=== PATIENT | male | born 1975 | race Caucasian/White ===

== ENCOUNTER 2019-03-26 18:01 | Emergency (ER) | payer BC ==
[~2019-03-26] VITALS: Ht 180.3 cm; Wt 149.7 kg
--- NOTE | 2019-03-26 18:01 | NUR ---
Patient triaged and placed in waiting room. VSS and patient appears in no acute distress at this time. Accompanied by FAMILY, awaiting available bed, and MD notified of need for MSE.
[2019-03-26 18:05] VITALS: BP_SYST 126
--- NOTE | 2019-03-26 20:17 | NUR ---
2017 - Patient to ER bed h1 to gown for evaluation. Side rails up. Report given to CALIXTO Barnes.
--- NOTE | 2019-03-26 20:20 | NUR ---
Pt brought by self ,A&Ox4, pt presents to ER with L earache for one week , skin pink and warm,cap refill <3, VSS, respirations even and unlabored, afebrile.
--- NOTE | 2019-03-26 20:25 | NUR ---
Dr Mackey at bedside examining patient
[2019-03-26] MEDS ORDERED: IBUPROFEN 800 MG TABLET PO ONE (20:30)
[2019-03-26] MEDS ORDERED: AMOXICILLIN 500 MG CAPSULE PO ONE (20:30)
[2019-03-26] MEDS ORDERED: NEOMYCIN/POLYMYX B/HYDROCORTISONE 10 ML OTIC SOLUTION OT ONE (20:30)
[2019-03-26 20:43] VITALS: BP_SYST 126
--- NOTE | 2019-03-26 20:43 | NUR ---
Patient given written and verbal discharge instructions and verbalizes understanding. ER MD discussed with patient the results and treatment provided. Patient in stable condition. ID arm band removed. Rx of Amoxicillin, Cortisporin,Ibuprofen given. Patient educated on pain management and to follow up with PMD. Pain Scale 3/10 tolerable for pt. Opportunity for questions provided and answered. Medication side effect fact sheet provided.
== END 2019-03-26 20:43 | disposition home or self-care (01) ==
LOC: SED 18:01
DX: H60.92 Unspecified otitis externa, left ear (principal); H66.92 Otitis media, unspecified, left ear
CPT/HCPCS: 99283

== ENCOUNTER 2019-11-20 21:19 | Inpatient (IN) | payer BC ==
[~2019-11-20] VITALS: Ht 180.3 cm; Wt 150.6 kg
[2019-11-20 21:30] VITALS: BP_SYST 128
[2019-11-20 22:20] LABS: BILIRUBIN,URINE NEGATIVE (NEGATIVE); BLOOD, URINE 1+ (NEGATIVE); CLARITY/URINE CLEAR (CLEAR); COLOR,URINE YELLOW (YELLOW); GLUCOSE,URINE NEGATIVE (NEGATIVE); KETONES,URINE NEGATIVE (NEGATIVE); LEUKOCYTE ESTERASE ,URINE NEGATIVE (NEGATIVE); NITRITE, URINE NEGATIVE (NEGATIVE); PH,URINE 5.5 (5.0-8.0); PROTEIN URINE NEGATIVE (NEGATIVE)
[2019-11-20] MEDS ORDERED: GLU500 PO (22:50)
[2019-11-20 23:00] LABS: BACTERIA,URINE FEW /HPF (None Seen); WBC,URINE 0-3 /HPF (0-3)
[2019-11-20] MEDS ORDERED: IPRATROPIUM BROM 0.5 MG/2.5 ML VIAL.NEB (ATROVENT) INH ONE (23:45)
[2019-11-20] MEDS ORDERED: NS 1000 ML IV.SOLN IV ONE (23:45)
[2019-11-20] MEDS ORDERED: LevALBUTEROL HCL 1.25 MG/0.5 ML *CONC.* VIAL.NEB (XOPENEX CONC.) INH ONE (23:45)
[2019-11-21] VITALS (10 sets, daily range): BP systolic 114–163
[2019-11-21 00:41] LABS: BASOPHILS % (AUTO) 0.3 % (0.0-2.0); EOSINOPHILS % (AUTO) 0.1 % (0.0-4.0); HEMATOCRIT 44.5 % (36-54); HEMOGLOBIN 15.5 g/dL (14.0-18.0); LYMPHOCYTES # (AUTO) 0.6 K/uL (1.0-5.5); LYMPHOCYTES % (AUTO) 7.7 % (20.5-51.5); MEAN CORPUSCULAR HEMOGLOBIN 30 pg (27-31); MEAN CORPUSCULAR HGB CONC 35 % (32-36); MEAN CORPUSCULAR VOLUME 86 fL (79.0-98.0); MONOCYTES # (AUTO) 0.2 K/uL (0.0-1.0); NEUTROPHILS # (AUTO) 6.5 K/uL (1.8-7.7); NEUTROPHILS % (AUTO) 88.9 % (40.0-70.0); PLATELET COUNT (AUTO) 167 K/uL (130-430); RED BLOOD CELL COUNT(AUTO) 5.16 MIL/uL (4.2-6.2); RED CELL DISTRIBUTION WIDTH 14.4 % (9.0-15.0); WHITE BLOOD COUNT (AUTO) 7.4 K/uL (4.8-10.8)
[2019-11-21 00:47] LABS: CALCIUM 8.5 mg/dL (8.4-11.0); CREATININE 0.81 mg/dL (0.55-1.30); POTASSIUM 3.5 mmol/L (3.5-5.1)
[2019-11-21 00:53] LABS: ALBUMIN 3.5 g/dL (3.4-4.8); TOTAL BILIRUBIN 1.4 mg/dL (0.0-1.0)
[2019-11-21] MEDS ORDERED: NACL 0.9% 1,000 ML IV ONE (01:29)
[2019-11-21] MEDS ORDERED: LOSA50TA3 PO (02:06)
[2019-11-21] MEDS ORDERED: cefTRIAXone 1 GM IVPB PREMIX 50 ML IV SCH (03:00)
[2019-11-21] MEDS ORDERED: AZITHROMYCIN 500 MG in NS 250 ML IV ONE (03:30)
[2019-11-21] MEDS ORDERED: cefTRIAXone 1 GM in D5W 50 ML IV SCH (03:30)
[2019-11-21] MEDS ORDERED: ZOLP10TA2 PO (04:57)
[2019-11-21] MEDS ORDERED: IBUP-1970 PO (04:57)
[2019-11-21] MEDS ORDERED: METF1000 PO (04:57)
[2019-11-21] MEDS ORDERED: LOSA100T3 PO (04:57)
[2019-11-21] MEDS ORDERED: AMOX-426 PO (04:57)
[2019-11-21] MEDS ORDERED: AMLO5TAB4 PO (04:57)
[2019-11-21] MEDS ORDERED: D ME PO (04:57)
[2019-11-21] MEDS ORDERED: cefTRIAXone 1 GM IVPB PREMIX 50 ML IV ONE (05:09)
[2019-11-21] MEDS ORDERED: AZITHROMYCIN 500 MG/VIAL (ZITHROMAX) IV ONE (05:09)
[2019-11-21] MEDS ORDERED: ALBUTEROL SULFATE 0.083% 2.5 MG/3 ML VIAL.NEB INH ONE (07:47)
[2019-11-21] MEDS: OSELTAMIVIR PHOSPHATE 75 MG CAPSULE PO SCH ×2 (09:29→21:17)
[2019-11-21] MEDS ORDERED: methylPREDNISolone SOD SUCC 40 MG/ML VIAL IVP ONE (11:30)
[2019-11-21] MEDS ORDERED: ACETAMINOPHEN 325 MG TABLET PO PRN ×2 (14:00→16:45)
[2019-11-21] MEDS: ALBUTEROL SULFATE 0.083% 2.5 MG/3 ML VIAL.NEB INH PRN ×2 (14:07→18:44)
[2019-11-21] MEDS: VANCOMYCIN HCL 1,500 MG in NS 250 ML IV SCH ×2 (15:00→22:50)
[2019-11-21] MEDS ORDERED: D METHORPHAN HB PO PRN (16:30)
[2019-11-21] MEDS ORDERED: BPM PO PRN (16:30)
[2019-11-21] MEDS ORDERED: ZOLPIDEM TARTRATE 5 MG TABLET PO PRN (16:30)
[2019-11-21] MEDS ORDERED: IBUPROFEN 800 MG TABLET PO PRN (16:30)
[2019-11-21] MEDS ORDERED: P EPD HCL PO PRN (16:30)
[2019-11-21] MEDS ORDERED: HYDROcodone/ACETAMIN 10-325 MG TAB PO PRN (16:45)
[2019-11-21] MEDS ORDERED: LORazepam 2 MG/ML VIAL IVP PRN (16:45)
[2019-11-21] MEDS ORDERED: ONDANSETRON HCL 4 MG/2 ML VIAL IVP PRN (16:45)
[2019-11-21] MEDS ORDERED: amLODIPine BESYLATE 5 MG TABLET PO ONE (16:45)
[2019-11-21] MEDS ORDERED: LOSARTAN POTASSIUM 50 MG TABLET (COZAAR) PO ONE (16:45)
[2019-11-21] MEDS ORDERED: HYDROcodone/ACETAMIN 5-325 MG TAB (NORCO/ VICODIN) PO PRN (16:45)
[2019-11-21] MEDS: INSULIN REGULAR, HUMAN 100 UNITS/ML, 10 ML VIAL (humuLIN R) SUBCUT PRN (17:43)
[2019-11-21] MEDS: metFORMIN HCL 500 MG TABLET PO SCH (18:44)
[2019-11-21] MEDS: ALBUTEROL SULFATE 0.083% 2.5 MG/3 ML VIAL.NEB INH SCH (21:05)
[2019-11-21] MEDS: cefTRIAXone 1 GM in D5W 50 ML IV SCH (21:20)
[2019-11-21] MEDS: NORMAL SALINE 5 ML DISP.SYRIN IVF SCH ×2 (22:57)
[2019-11-22] VITALS (24 sets, daily range): BP systolic 117–146
[2019-11-22] MEDS: ALBUTEROL SULFATE 0.083% 2.5 MG/3 ML VIAL.NEB INH PRN (00:38)
[2019-11-22] MEDS: AZITHROMYCIN 250 MG in NS 250 ML IV SCH ×2 (01:24→22:21)
[2019-11-22] MEDS: NORMAL SALINE 5 ML DISP.SYRIN IVF SCH ×4 (06:02→22:21)
[2019-11-22] MEDS: VANCOMYCIN HCL 1,500 MG in NS 250 ML IV SCH (06:03)
[2019-11-22 06:12] LABS: BASOPHILS % (AUTO) 0.4 % (0.0-2.0); HEMATOCRIT 39.8 % (36-54); HEMOGLOBIN 13.5 g/dL (14.0-18.0); LYMPHOCYTES # (AUTO) 1.2 K/uL (1.0-5.5); LYMPHOCYTES % (AUTO) 13.9 % (20.5-51.5); MEAN CORPUSCULAR HEMOGLOBIN 30 pg (27-31); MEAN CORPUSCULAR HGB CONC 34 % (32-36); MONOCYTES # (AUTO) 0.5 K/uL (0.0-1.0); MONOCYTES % (AUTO) 6.2 % (1.7-9.3); NEUTROPHILS # (AUTO) 6.9 K/uL (1.8-7.7); NEUTROPHILS % (AUTO) 79.5 % (40.0-70.0); PLATELET COUNT (AUTO) 205 K/uL (130-430); RED BLOOD CELL COUNT(AUTO) 4.54 MIL/uL (4.2-6.2); RED CELL DISTRIBUTION WIDTH 14.7 % (9.0-15.0); WHITE BLOOD COUNT (AUTO) 8.7 K/uL (4.8-10.8)
[2019-11-22 06:21] LABS: MEAN CORPUSCULAR VOLUME 88 fL (79.0-98.0)
[2019-11-22 06:34] LABS: ALBUMIN 2.8 g/dL (3.4-4.8); CALCIUM 7.4 mg/dL (8.4-11.0); CREATININE 0.86 mg/dL (0.55-1.30); POTASSIUM 3.2 mmol/L (3.5-5.1)
[2019-11-22] MEDS: ALBUTEROL SULFATE 0.083% 2.5 MG/3 ML VIAL.NEB INH SCH ×2 (06:58→21:34)
[2019-11-22 07:24] LABS: ERYTHROCYTE SEDIMENTATION RATE 40 MM/HR (0-15)
[2019-11-22] MEDS: amLODIPine BESYLATE 5 MG TABLET PO SCH (08:16)
[2019-11-22] MEDS: metFORMIN HCL 500 MG TABLET PO SCH ×2 (08:16→17:34)
[2019-11-22] MEDS: LOSARTAN POTASSIUM 50 MG TABLET (COZAAR) PO SCH (08:16)
[2019-11-22] MEDS: OSELTAMIVIR PHOSPHATE 75 MG CAPSULE PO SCH ×2 (08:17→20:47)
[2019-11-22] MEDS ORDERED: methylPREDNISolone SOD SUCC 40 MG/ML VIAL IVP SCH (09:00)
[2019-11-22] MEDS ORDERED: POTASSIUM CHLORIDE 20 MEQ TAB.PRT.SR PO ONE (10:30)
[2019-11-22] MEDS ORDERED: ENOXAPARIN SODIUM 40 MG/0.4 ML SYRINGE SUBCUT ONE (10:30)
[2019-11-22] MEDS: INSULIN REGULAR, HUMAN 100 UNITS/ML, 10 ML VIAL (humuLIN R) SUBCUT PRN ×3 (11:20→20:52)
[2019-11-22] MEDS: VANCOMYCIN HCL 2,000 MG in NS 500 ML IV SCH (15:54)
[2019-11-22 19:05] LABS: C-REACTIVE PROTEIN QUANT 13.2 mg/dL (0-0.5)
[2019-11-22] MEDS: methylPREDNISolone SOD SUCC 40 MG/ML VIAL IVP SCH (20:47)
[2019-11-22] MEDS: cefTRIAXone 1 GM in D5W 50 ML IV SCH (20:47)
[2019-11-22] MEDS: NITROGLYCERIN 1 INCH (GM) OINT. TP SCH (20:48)
[2019-11-22] MEDS: FUROSEMIDE 20 MG/2 ML VIAL IVP SCH (20:48)
[2019-11-23] VITALS (24 sets, daily range): BP systolic 84–159
[2019-11-23] MEDS: VANCOMYCIN HCL 2,000 MG in NS 500 ML IV SCH ×3 (00:16→14:29)
[2019-11-23] MEDS ORDERED: FLU VACC QS2019-20 36MOS UP/PF 60 MCG/0.5 ML SYRINGE I.M. PRN (02:00)
[2019-11-23 06:35] LABS: BASOPHILS % (AUTO) 0.1 % (0.0-2.0); HEMATOCRIT 41.3 % (36-54); HEMOGLOBIN 13.9 g/dL (14.0-18.0); LYMPHOCYTES # (AUTO) 0.9 K/uL (1.0-5.5); LYMPHOCYTES % (AUTO) 10.9 % (20.5-51.5); MEAN CORPUSCULAR HEMOGLOBIN 30 pg (27-31); MEAN CORPUSCULAR HGB CONC 34 % (32-36); MEAN CORPUSCULAR VOLUME 89 fL (79.0-98.0); MONOCYTES # (AUTO) 0.6 K/uL (0.0-1.0); MONOCYTES % (AUTO) 7.5 % (1.7-9.3); NEUTROPHILS % (AUTO) 81.5 % (40.0-70.0); PLATELET COUNT (AUTO) 259 K/uL (130-430); RED BLOOD CELL COUNT(AUTO) 4.66 MIL/uL (4.2-6.2); WHITE BLOOD COUNT (AUTO) 8.6 K/uL (4.8-10.8)
[2019-11-23] MEDS: NORMAL SALINE 5 ML DISP.SYRIN IVF SCH ×3 (06:40→21:07)
[2019-11-23 06:45] LABS: ALBUMIN 2.8 g/dL (3.4-4.8); CALCIUM 7.7 mg/dL (8.4-11.0); CREATININE 0.75 mg/dL (0.55-1.30); POTASSIUM 3.9 mmol/L (3.5-5.1); TOTAL BILIRUBIN 0.9 mg/dL (0.0-1.0)
[2019-11-23] MEDS: INSULIN REGULAR, HUMAN 100 UNITS/ML, 10 ML VIAL (humuLIN R) SUBCUT PRN ×4 (06:47→21:23)
[2019-11-23 07:28] LABS: C-REACTIVE PROTEIN QUANT 12.6 mg/dL (0-0.5)
[2019-11-23] MEDS: NITROGLYCERIN 1 INCH (GM) OINT. TP SCH ×3 (08:12→21:06)
[2019-11-23] MEDS: amLODIPine BESYLATE 5 MG TABLET PO SCH (08:13)
[2019-11-23] MEDS: methylPREDNISolone SOD SUCC 40 MG/ML VIAL IVP SCH ×2 (08:13→21:05)
[2019-11-23] MEDS: metFORMIN HCL 500 MG TABLET PO SCH ×2 (08:14→17:09)
[2019-11-23] MEDS: LOSARTAN POTASSIUM 50 MG TABLET (COZAAR) PO SCH (08:14)
[2019-11-23] MEDS: OSELTAMIVIR PHOSPHATE 75 MG CAPSULE PO SCH ×2 (08:14→21:04)
[2019-11-23] MEDS: ENOXAPARIN SODIUM 40 MG/0.4 ML SYRINGE SUBCUT SCH (08:15)
[2019-11-23] MEDS ORDERED: FUROSEMIDE 20 MG/2 ML VIAL IVP ONE ×2 (09:00→15:00)
[2019-11-23 09:27] LABS: ERYTHROCYTE SEDIMENTATION RATE 51 MM/HR (0-15)
[2019-11-23] MEDS: ALBUTEROL SULFATE 0.083% 2.5 MG/3 ML VIAL.NEB INH SCH (20:01)
[2019-11-23] MEDS: VANCOMYCIN HCL 1,500 MG in NS 250 ML IV SCH (21:03)
[2019-11-23] MEDS: FUROSEMIDE 20 MG/2 ML VIAL IVP SCH (21:04)
[2019-11-23] MEDS: cefTRIAXone 1 GM in D5W 50 ML IV SCH (21:05)
[2019-11-23] MEDS: AZITHROMYCIN 250 MG in NS 250 ML IV SCH (21:07)
[2019-11-24] VITALS (25 sets, daily range): BP systolic 114–169
[2019-11-24] MEDS: VANCOMYCIN HCL 1,500 MG in NS 250 ML IV SCH ×4 (03:47→22:14)
[2019-11-24] MEDS: INSULIN REGULAR, HUMAN 100 UNITS/ML, 10 ML VIAL (humuLIN R) SUBCUT PRN ×4 (06:31→23:42)
[2019-11-24] MEDS: NORMAL SALINE 5 ML DISP.SYRIN IVF SCH ×3 (06:31→22:19)
[2019-11-24 07:21] LABS: BASOPHILS % (AUTO) 0.1 % (0.0-2.0); HEMATOCRIT 40.3 % (36-54); HEMOGLOBIN 13.4 g/dL (14.0-18.0); LYMPHOCYTES # (AUTO) 1.1 K/uL (1.0-5.5); LYMPHOCYTES % (AUTO) 8.2 % (20.5-51.5); MEAN CORPUSCULAR HEMOGLOBIN 29 pg (27-31); MEAN CORPUSCULAR HGB CONC 33 % (32-36); MEAN CORPUSCULAR VOLUME 88 fL (79.0-98.0); MONOCYTES % (AUTO) 7.7 % (1.7-9.3); NEUTROPHILS # (AUTO) 10.8 K/uL (1.8-7.7); PLATELET COUNT (AUTO) 334 K/uL (130-430); RED BLOOD CELL COUNT(AUTO) 4.56 MIL/uL (4.2-6.2); RED CELL DISTRIBUTION WIDTH 15.2 % (9.0-15.0); WHITE BLOOD COUNT (AUTO) 12.9 K/uL (4.8-10.8)
[2019-11-24 07:51] LABS: ALBUMIN 2.7 g/dL (3.4-4.8); C-REACTIVE PROTEIN QUANT 5.5 mg/dL (0-0.5); CALCIUM 8.1 mg/dL (8.4-11.0); CREATININE 0.76 mg/dL (0.55-1.30); POTASSIUM 3.6 mmol/L (3.5-5.1); TOTAL BILIRUBIN 0.9 mg/dL (0.0-1.0)
[2019-11-24] MEDS: ALBUTEROL SULFATE 0.083% 2.5 MG/3 ML VIAL.NEB INH SCH ×3 (07:53→21:38)
[2019-11-24 08:26] LABS: ERYTHROCYTE SEDIMENTATION RATE 36 MM/HR (0-15)
[2019-11-24] MEDS: metFORMIN HCL 500 MG TABLET PO SCH ×2 (08:34→17:48)
[2019-11-24] MEDS: FUROSEMIDE 20 MG/2 ML VIAL IVP SCH (08:36)
[2019-11-24] MEDS: methylPREDNISolone SOD SUCC 40 MG/ML VIAL IVP SCH ×2 (08:36→22:17)
[2019-11-24] MEDS: OSELTAMIVIR PHOSPHATE 75 MG CAPSULE PO SCH ×2 (08:37→22:17)
[2019-11-24] MEDS: amLODIPine BESYLATE 5 MG TABLET PO SCH (08:37)
[2019-11-24] MEDS: LOSARTAN POTASSIUM 50 MG TABLET (COZAAR) PO SCH (08:38)
[2019-11-24] MEDS: ENOXAPARIN SODIUM 40 MG/0.4 ML SYRINGE SUBCUT SCH (08:42)
[2019-11-24] MEDS: NITROGLYCERIN 1 INCH (GM) OINT. TP SCH ×2 (08:52→22:18)
[2019-11-24 22:06] LABS: MYCOPLASMA PNEUMONIAE IgM <770 U/mL (0-769)
[2019-11-24] MEDS: cefTRIAXone 1 GM in D5W 50 ML IV SCH (22:13)
[2019-11-24] MEDS: AZITHROMYCIN 250 MG in NS 250 ML IV SCH (23:37)
[2019-11-25] VITALS (24 sets, daily range): BP systolic 65–163
[2019-11-25] MEDS: ALBUTEROL SULFATE 0.083% 2.5 MG/3 ML VIAL.NEB INH PRN (00:21)
[2019-11-25] MEDS: VANCOMYCIN HCL 1,500 MG in NS 250 ML IV SCH ×2 (03:20→08:47)
[2019-11-25] MEDS: NORMAL SALINE 5 ML DISP.SYRIN IVF SCH ×3 (06:13→21:29)
[2019-11-25] MEDS: INSULIN REGULAR, HUMAN 100 UNITS/ML, 10 ML VIAL (humuLIN R) SUBCUT PRN ×3 (06:14→18:07)
[2019-11-25 06:27] LABS: BASOPHILS % (AUTO) 0.1 % (0.0-2.0); HEMATOCRIT 39.2 % (36-54); HEMOGLOBIN 12.9 g/dL (14.0-18.0); LYMPHOCYTES # (AUTO) 1.1 K/uL (1.0-5.5); LYMPHOCYTES % (AUTO) 8.6 % (20.5-51.5); MEAN CORPUSCULAR HEMOGLOBIN 30 pg (27-31); MEAN CORPUSCULAR HGB CONC 33 % (32-36); MEAN CORPUSCULAR VOLUME 90 fL (79.0-98.0); MONOCYTES # (AUTO) 0.8 K/uL (0.0-1.0); MONOCYTES % (AUTO) 6.2 % (1.7-9.3); NEUTROPHILS # (AUTO) 10.9 K/uL (1.8-7.7); NEUTROPHILS % (AUTO) 85.1 % (40.0-70.0); PLATELET COUNT (AUTO) 380 K/uL (130-430); RED BLOOD CELL COUNT(AUTO) 4.38 MIL/uL (4.2-6.2); RED CELL DISTRIBUTION WIDTH 15.3 % (9.0-15.0); WHITE BLOOD COUNT (AUTO) 12.9 K/uL (4.8-10.8)
[2019-11-25 06:40] LABS: ALBUMIN 2.6 g/dL (3.4-4.8); C-REACTIVE PROTEIN QUANT 2.7 mg/dL (0-0.5); CALCIUM 7.9 mg/dL (8.4-11.0); CREATININE 0.79 mg/dL (0.55-1.30); POTASSIUM 3.9 mmol/L (3.5-5.1)
[2019-11-25 07:35] LABS: ERYTHROCYTE SEDIMENTATION RATE 29 MM/HR (0-15)
[2019-11-25] MEDS: ALBUTEROL SULFATE 0.083% 2.5 MG/3 ML VIAL.NEB INH SCH ×3 (08:03→21:21)
[2019-11-25] MEDS: FUROSEMIDE 20 MG/2 ML VIAL IVP SCH (08:48)
[2019-11-25] MEDS: amLODIPine BESYLATE 5 MG TABLET PO SCH (08:48)
[2019-11-25] MEDS: methylPREDNISolone SOD SUCC 40 MG/ML VIAL IVP SCH ×2 (08:48→21:12)
[2019-11-25] MEDS: OSELTAMIVIR PHOSPHATE 75 MG CAPSULE PO SCH ×2 (08:48→21:12)
[2019-11-25] MEDS: LOSARTAN POTASSIUM 50 MG TABLET (COZAAR) PO SCH (08:49)
[2019-11-25] MEDS: NITROGLYCERIN 1 INCH (GM) OINT. TP SCH ×2 (08:49→21:13)
[2019-11-25] MEDS: ENOXAPARIN SODIUM 40 MG/0.4 ML SYRINGE SUBCUT SCH (08:50)
[2019-11-25] MEDS: metFORMIN HCL 500 MG TABLET PO SCH ×2 (09:33→20:08)
[2019-11-25 11:07] LABS: MYCOPLASMA PNEUMONIAE IgG 477 U/mL (0-99)
[2019-11-25] MEDS: cefTRIAXone 1 GM in D5W 50 ML IV SCH (21:12)
[2019-11-25] MEDS: AZITHROMYCIN 250 MG in NS 250 ML IV SCH (21:28)
[2019-11-26] VITALS (24 sets, daily range): BP systolic 123–152
[2019-11-26] MEDS: INSULIN REGULAR, HUMAN 100 UNITS/ML, 10 ML VIAL (humuLIN R) SUBCUT PRN ×4 (06:32→20:47)
[2019-11-26 06:58] LABS: C-REACTIVE PROTEIN QUANT 1.5 mg/dL (0-0.5); CALCIUM 8.2 mg/dL (8.4-11.0); CREATININE 0.68 mg/dL (0.55-1.30); POTASSIUM 4.2 mmol/L (3.5-5.1)
[2019-11-26 07:05] LABS: BASOPHILS % (AUTO) 0.2 % (0.0-2.0); HEMATOCRIT 39.9 % (36-54); HEMOGLOBIN 13.2 g/dL (14.0-18.0); LYMPHOCYTES # (AUTO) 1.6 K/uL (1.0-5.5); LYMPHOCYTES % (AUTO) 10.7 % (20.5-51.5); MEAN CORPUSCULAR HEMOGLOBIN 29 pg (27-31); MEAN CORPUSCULAR HGB CONC 33 % (32-36); MEAN CORPUSCULAR VOLUME 89 fL (79.0-98.0); MONOCYTES # (AUTO) 0.9 K/uL (0.0-1.0); NEUTROPHILS # (AUTO) 12.7 K/uL (1.8-7.7); NEUTROPHILS % (AUTO) 83.1 % (40.0-70.0); PLATELET COUNT (AUTO) 467 K/uL (130-430); RED CELL DISTRIBUTION WIDTH 15.3 % (9.0-15.0); WHITE BLOOD COUNT (AUTO) 15.2 K/uL (4.8-10.8)
[2019-11-26] MEDS: ALBUTEROL SULFATE 0.083% 2.5 MG/3 ML VIAL.NEB INH SCH ×3 (07:46→21:18)
[2019-11-26] MEDS: metFORMIN HCL 500 MG TABLET PO SCH ×2 (08:42→17:06)
[2019-11-26] MEDS: amLODIPine BESYLATE 5 MG TABLET PO SCH (08:42)
[2019-11-26] MEDS: FUROSEMIDE 20 MG/2 ML VIAL IVP SCH (08:43)
[2019-11-26] MEDS: LOSARTAN POTASSIUM 50 MG TABLET (COZAAR) PO SCH (08:43)
[2019-11-26] MEDS ORDERED: methylPREDNISolone SOD SUCC 40 MG/ML VIAL ONE (08:43)
[2019-11-26] MEDS: methylPREDNISolone SOD SUCC 40 MG/ML VIAL IVP SCH ×2 (08:43→12:20)
[2019-11-26] MEDS: NITROGLYCERIN 1 INCH (GM) OINT. TP SCH ×2 (08:44→20:21)
[2019-11-26] MEDS: NORMAL SALINE 5 ML DISP.SYRIN IVF SCH ×3 (08:44→22:00)
[2019-11-26] MEDS: ENOXAPARIN SODIUM 40 MG/0.4 ML SYRINGE SUBCUT SCH (08:45)
[2019-11-26 09:23] LABS: ERYTHROCYTE SEDIMENTATION RATE 25 MM/HR (0-15)
[2019-11-26] MEDS: cefTRIAXone 1 GM in D5W 50 ML IV SCH (20:20)
[2019-11-27] VITALS (19 sets, daily range): BP systolic 114–153
[2019-11-27] MEDS: NORMAL SALINE 5 ML DISP.SYRIN IVF SCH ×3 (06:34→20:51)
[2019-11-27 06:40] LABS: C-REACTIVE PROTEIN QUANT 0.5 mg/dL (0-0.5); CALCIUM 8.1 mg/dL (8.4-11.0); CREATININE 0.8 mg/dL (0.55-1.30); POTASSIUM 3.7 mmol/L (3.5-5.1)
[2019-11-27 06:59] LABS: BASOPHILS % (AUTO) 0.3 % (0.0-2.0); EOSINOPHILS # (AUTO) 0.1 K/uL (0.0-0.4); EOSINOPHILS % (AUTO) 0.4 % (0.0-4.0); HEMOGLOBIN 14.1 g/dL (14.0-18.0); LYMPHOCYTES # (AUTO) 3.2 K/uL (1.0-5.5); LYMPHOCYTES % (AUTO) 21.8 % (20.5-51.5); MEAN CORPUSCULAR HEMOGLOBIN 30 pg (27-31); MEAN CORPUSCULAR HGB CONC 34 % (32-36); MEAN CORPUSCULAR VOLUME 89 fL (79.0-98.0); MONOCYTES # (AUTO) 0.9 K/uL (0.0-1.0); MONOCYTES % (AUTO) 6.2 % (1.7-9.3); NEUTROPHILS # (AUTO) 10.6 K/uL (1.8-7.7); NEUTROPHILS % (AUTO) 71.3 % (40.0-70.0); PLATELET COUNT (AUTO) 487 K/uL (130-430); RED BLOOD CELL COUNT(AUTO) 4.73 MIL/uL (4.2-6.2); WHITE BLOOD COUNT (AUTO) 14.9 K/uL (4.8-10.8)
[2019-11-27] MEDS: methylPREDNISolone SOD SUCC 40 MG/ML VIAL IVP SCH (08:16)
[2019-11-27] MEDS: metFORMIN HCL 500 MG TABLET PO SCH ×2 (08:16→17:41)
[2019-11-27] MEDS: FUROSEMIDE 20 MG/2 ML VIAL IVP SCH (08:16)
[2019-11-27] MEDS: amLODIPine BESYLATE 5 MG TABLET PO SCH (08:17)
[2019-11-27] MEDS: LOSARTAN POTASSIUM 50 MG TABLET (COZAAR) PO SCH (08:17)
[2019-11-27] MEDS: NITROGLYCERIN 1 INCH (GM) OINT. TP SCH ×2 (08:20→20:50)
[2019-11-27] MEDS: ENOXAPARIN SODIUM 40 MG/0.4 ML SYRINGE SUBCUT SCH (08:22)
[2019-11-27 09:44] LABS: ERYTHROCYTE SEDIMENTATION RATE 15 MM/HR (0-15)
[2019-11-27] MEDS ORDERED: DEXTROSE 50%-WATER 50 ML DISP.SYRIN IVP PRN (11:30)
[2019-11-27] MEDS ORDERED: D5W 1,000 ML IV PRN (11:30)
[2019-11-27] MEDS ORDERED: GLUCOSE 15 GM GEL (in 37.5 GM TUBE) PO PRN (11:30)
[2019-11-27] MEDS: INSULIN REGULAR, HUMAN 100 UNITS/ML, 10 ML VIAL (humuLIN R) SUBCUT PRN ×3 (12:19→20:56)
[2019-11-27] MEDS: ALBUTEROL SULFATE 0.083% 2.5 MG/3 ML VIAL.NEB INH SCH ×3 (15:53→21:40)
[2019-11-27] MEDS: cefTRIAXone 1 GM in D5W 50 ML IV SCH (20:50)
[2019-11-27] MEDS ORDERED: cefTRIAXone 1 GM IVPB PREMIX 100 ML IV ONE (21:35)
[2019-11-28] VITALS: BP_SYST 114
[2019-11-28] MEDS: INSULIN REGULAR, HUMAN 100 UNITS/ML, 10 ML VIAL (humuLIN R) SUBCUT PRN ×4 (06:07→20:05)
[2019-11-28] MEDS: NORMAL SALINE 5 ML DISP.SYRIN IVF SCH ×4 (06:12→20:17)
[2019-11-28] MEDS: ALBUTEROL SULFATE 0.083% 2.5 MG/3 ML VIAL.NEB INH SCH ×3 (07:06→20:00)
[2019-11-28 07:57] LABS: BASOPHILS % (AUTO) 0.2 % (0.0-2.0); EOSINOPHILS # (AUTO) 0.1 K/uL (0.0-0.4); EOSINOPHILS % (AUTO) 0.5 % (0.0-4.0); HEMATOCRIT 42.4 % (36-54); HEMOGLOBIN 14.2 g/dL (14.0-18.0); LYMPHOCYTES % (AUTO) 19.6 % (20.5-51.5); MEAN CORPUSCULAR HEMOGLOBIN 30 pg (27-31); MEAN CORPUSCULAR HGB CONC 33 % (32-36); MEAN CORPUSCULAR VOLUME 89 fL (79.0-98.0); MONOCYTES # (AUTO) 1.1 K/uL (0.0-1.0); MONOCYTES % (AUTO) 6.9 % (1.7-9.3); NEUTROPHILS # (AUTO) 11.1 K/uL (1.8-7.7); NEUTROPHILS % (AUTO) 72.8 % (40.0-70.0); PLATELET COUNT (AUTO) 502 K/uL (130-430); RED BLOOD CELL COUNT(AUTO) 4.77 MIL/uL (4.2-6.2); WHITE BLOOD COUNT (AUTO) 15.3 K/uL (4.8-10.8)
[2019-11-28 08:00] VITALS: BP_SYST 116
[2019-11-28 08:05] LABS: ALANINE AMINOTRANSFERASE 87 U/L (12-78); ANION GAP 5 (5-15); ASPARTATE AMINOTRANSFERASE 37 U/L (10-37); C-REACTIVE PROTEIN QUANT < 0.2 mg/dL (0-0.5); CALCIUM 8.1 mg/dL (8.4-11.0); CHLORIDE 101 mmol/L (98-107); GLUCOSE 115 mg/dL (70-99); POTASSIUM 3.8 mmol/L (3.5-5.1); SODIUM SERUM 135 mmol/L (136-145); TOTAL BILIRUBIN 1.3 mg/dL (0.0-1.0); UREA NITROGEN, BLOOD 23 mg/dL (8-21)
[2019-11-28 08:07] LABS: GFR AFRICAN AMERICAN 135 mL/min (>90)
[2019-11-28 08:53] LABS: ERYTHROCYTE SEDIMENTATION RATE 13 MM/HR (0-15)
[2019-11-28] MEDS: FUROSEMIDE 20 MG/2 ML VIAL IVP SCH (09:09)
[2019-11-28] MEDS: methylPREDNISolone SOD SUCC 40 MG/ML VIAL IVP SCH (09:10)
[2019-11-28] MEDS: LOSARTAN POTASSIUM 50 MG TABLET (COZAAR) PO SCH (09:11)
[2019-11-28] MEDS: ENOXAPARIN SODIUM 40 MG/0.4 ML SYRINGE SUBCUT SCH (09:12)
[2019-11-28] MEDS: amLODIPine BESYLATE 5 MG TABLET PO SCH (09:12)
[2019-11-28] MEDS: NITROGLYCERIN 1 INCH (GM) OINT. TP SCH ×2 (09:13→20:09)
[2019-11-28] MEDS: metFORMIN HCL 500 MG TABLET PO SCH ×2 (09:16→17:46)
[2019-11-28 11:40] VITALS: BP_SYST 128
[2019-11-28 16:00] VITALS: BP_SYST 118
[2019-11-28 20:00] VITALS: BP_SYST 113
[2019-11-29 00:01] VITALS: BP_SYST 105
[2019-11-29] MEDS: NORMAL SALINE 5 ML DISP.SYRIN IVF SCH ×3 (06:01→20:25)
[2019-11-29 06:36] LABS: BASOPHILS % (AUTO) 0.2 % (0.0-2.0); EOSINOPHILS % (AUTO) 0.3 % (0.0-4.0); HEMATOCRIT 41.5 % (36-54); HEMOGLOBIN 13.9 g/dL (14.0-18.0); LYMPHOCYTES # (AUTO) 2.6 K/uL (1.0-5.5); LYMPHOCYTES % (AUTO) 16.2 % (20.5-51.5); MEAN CORPUSCULAR HEMOGLOBIN 30 pg (27-31); MEAN CORPUSCULAR HGB CONC 33 % (32-36); MEAN CORPUSCULAR VOLUME 89 fL (79.0-98.0); MONOCYTES # (AUTO) 1.1 K/uL (0.0-1.0); MONOCYTES % (AUTO) 6.6 % (1.7-9.3); NEUTROPHILS # (AUTO) 12.3 K/uL (1.8-7.7); NEUTROPHILS % (AUTO) 76.7 % (40.0-70.0); PLATELET COUNT (AUTO) 499 K/uL (130-430); RED BLOOD CELL COUNT(AUTO) 4.68 MIL/uL (4.2-6.2); RED CELL DISTRIBUTION WIDTH 15.1 % (9.0-15.0)
[2019-11-29] MEDS: ALBUTEROL SULFATE 0.083% 2.5 MG/3 ML VIAL.NEB INH SCH ×3 (07:01→20:26)
[2019-11-29 07:34] LABS: ANION GAP 6 (5-15); CALCIUM 8.3 mg/dL (8.4-11.0); CHLORIDE 103 mmol/L (98-107); CREATININE 0.79 mg/dL (0.55-1.30); GFR AFRICAN AMERICAN 137 mL/min (>90); GLUCOSE 107 mg/dL (70-99); SODIUM SERUM 138 mmol/L (136-145); UREA NITROGEN, BLOOD 21 mg/dL (8-21)
[2019-11-29 07:35] LABS: C-REACTIVE PROTEIN QUANT < 0.2 mg/dL (0-0.5)
[2019-11-29 08:00] VITALS: BP_SYST 123
[2019-11-29] MEDS: ENOXAPARIN SODIUM 40 MG/0.4 ML SYRINGE SUBCUT SCH (08:27)
[2019-11-29] MEDS: methylPREDNISolone SOD SUCC 40 MG/ML VIAL IVP SCH (08:28)
[2019-11-29] MEDS: LOSARTAN POTASSIUM 50 MG TABLET (COZAAR) PO SCH (08:29)
[2019-11-29] MEDS: FUROSEMIDE 20 MG/2 ML VIAL IVP SCH (08:29)
[2019-11-29] MEDS: metFORMIN HCL 500 MG TABLET PO SCH ×2 (08:30→17:28)
[2019-11-29] MEDS: amLODIPine BESYLATE 5 MG TABLET PO SCH (08:30)
[2019-11-29 08:35] LABS: ERYTHROCYTE SEDIMENTATION RATE 12 MM/HR (0-15)
[2019-11-29] MEDS: NITROGLYCERIN 1 INCH (GM) OINT. TP SCH ×2 (08:48→20:24)
[2019-11-29 12:00] VITALS: BP_SYST 121
[2019-11-29] MEDS: cefTRIAXone 1 GM in D5W 50 ML IV SCH (15:22)
[2019-11-29 16:00] VITALS: BP_SYST 130
[2019-11-29] MEDS: INSULIN REGULAR, HUMAN 100 UNITS/ML, 10 ML VIAL (humuLIN R) SUBCUT PRN ×2 (17:37→20:33)
[2019-11-29 19:35] VITALS: BP_SYST 121
[2019-11-30 00:13] VITALS: BP_SYST 107
[2019-11-30] MEDS: NORMAL SALINE 5 ML DISP.SYRIN IVF SCH ×3 (05:39→22:14)
[2019-11-30 07:15] VITALS: BP_SYST 110
[2019-11-30] MEDS: ALBUTEROL SULFATE 0.083% 2.5 MG/3 ML VIAL.NEB INH SCH ×2 (07:28→15:31)
[2019-11-30 07:54] LABS: BASOPHILS % (AUTO) 0.3 % (0.0-2.0); EOSINOPHILS # (AUTO) 0.1 K/uL (0.0-0.4); EOSINOPHILS % (AUTO) 0.4 % (0.0-4.0); HEMATOCRIT 41.9 % (36-54); LYMPHOCYTES # (AUTO) 3.1 K/uL (1.0-5.5); LYMPHOCYTES % (AUTO) 21.8 % (20.5-51.5); MEAN CORPUSCULAR HEMOGLOBIN 30 pg (27-31); MEAN CORPUSCULAR HGB CONC 33 % (32-36); MEAN CORPUSCULAR VOLUME 89 fL (79.0-98.0); MONOCYTES # (AUTO) 1.1 K/uL (0.0-1.0); MONOCYTES % (AUTO) 7.9 % (1.7-9.3); NEUTROPHILS # (AUTO) 9.9 K/uL (1.8-7.7); NEUTROPHILS % (AUTO) 69.6 % (40.0-70.0); PLATELET COUNT (AUTO) 507 K/uL (130-430); RED CELL DISTRIBUTION WIDTH 15.1 % (9.0-15.0); WHITE BLOOD COUNT (AUTO) 14.2 K/uL (4.8-10.8)
[2019-11-30] MEDS: PREDNISONE 20 MG TABLET PO SCH (08:15)
[2019-11-30] MEDS: metFORMIN HCL 500 MG TABLET PO SCH ×2 (08:16→17:32)
[2019-11-30] MEDS: LOSARTAN POTASSIUM 50 MG TABLET (COZAAR) PO SCH (08:16)
[2019-11-30 08:17] LABS: ANION GAP 3 (5-15); C-REACTIVE PROTEIN QUANT < 0.2 mg/dL (0-0.5); CHLORIDE 100 mmol/L (98-107); CREATININE 0.84 mg/dL (0.55-1.30); GLUCOSE 95 mg/dL (70-99); POTASSIUM 3.7 mmol/L (3.5-5.1); SODIUM SERUM 132 mmol/L (136-145); UREA NITROGEN, BLOOD 21 mg/dL (8-21)
[2019-11-30] MEDS: amLODIPine BESYLATE 5 MG TABLET PO SCH (08:17)
[2019-11-30] MEDS: ENOXAPARIN SODIUM 40 MG/0.4 ML SYRINGE SUBCUT SCH (08:18)
[2019-11-30 08:19] LABS: GFR AFRICAN AMERICAN 128 mL/min (>90)
[2019-11-30] MEDS: FUROSEMIDE 20 MG/2 ML VIAL IVP SCH (08:19)
[2019-11-30] MEDS: NITROGLYCERIN 1 INCH (GM) OINT. TP SCH ×2 (08:20→22:12)
[2019-11-30 09:05] VITALS: BP_SYST 107
[2019-11-30 09:18] LABS: ERYTHROCYTE SEDIMENTATION RATE 12 MM/HR (0-15)
[2019-11-30 11:24] LABS: PROTHROMBIN TIME 10.4 SECS (9.5-12.5)
[2019-11-30 12:15] VITALS: BP_SYST 139
[2019-11-30] MEDS: cefTRIAXone 1 GM in D5W 50 ML IV SCH (15:16)
[2019-11-30 16:15] VITALS: BP_SYST 147
[2019-11-30] MEDS: INSULIN REGULAR, HUMAN 100 UNITS/ML, 10 ML VIAL (humuLIN R) SUBCUT PRN (17:44)
[2019-11-30 20:00] VITALS: BP_SYST 124
[2019-12-01] VITALS: BP_SYST 118
[2019-12-01] MEDS: NORMAL SALINE 5 ML DISP.SYRIN IVF SCH ×2 (06:49→14:57)
[2019-12-01 07:22] LABS: BASOPHILS # (AUTO) 0.1 K/uL (0.0-0.2); BASOPHILS % (AUTO) 0.5 % (0.0-2.0); EOSINOPHILS % (AUTO) 0.3 % (0.0-4.0); HEMATOCRIT 42.7 % (36-54); HEMOGLOBIN 14.2 g/dL (14.0-18.0); LYMPHOCYTES # (AUTO) 3.1 K/uL (1.0-5.5); LYMPHOCYTES % (AUTO) 22.1 % (20.5-51.5); MEAN CORPUSCULAR HEMOGLOBIN 30 pg (27-31); MEAN CORPUSCULAR HGB CONC 33 % (32-36); MEAN CORPUSCULAR VOLUME 89 fL (79.0-98.0); MONOCYTES % (AUTO) 7.4 % (1.7-9.3); NEUTROPHILS # (AUTO) 9.7 K/uL (1.8-7.7); NEUTROPHILS % (AUTO) 69.7 % (40.0-70.0); PLATELET COUNT (AUTO) 496 K/uL (130-430); RED BLOOD CELL COUNT(AUTO) 4.81 MIL/uL (4.2-6.2); RED CELL DISTRIBUTION WIDTH 15.2 % (9.0-15.0); WHITE BLOOD COUNT (AUTO) 13.9 K/uL (4.8-10.8)
[2019-12-01] MEDS: ALBUTEROL SULFATE 0.083% 2.5 MG/3 ML VIAL.NEB INH SCH ×2 (07:34→15:00)
[2019-12-01 07:45] LABS: ANION GAP 3 (5-15); C-REACTIVE PROTEIN QUANT < 0.2 mg/dL (0-0.5); CALCIUM 8.4 mg/dL (8.4-11.0); CHLORIDE 99 mmol/L (98-107); CREATININE 0.76 mg/dL (0.55-1.30); GLUCOSE 108 mg/dL (70-99); POTASSIUM 3.5 mmol/L (3.5-5.1); SODIUM SERUM 130 mmol/L (136-145); UREA NITROGEN, BLOOD 21 mg/dL (8-21)
[2019-12-01 07:48] LABS: GFR AFRICAN AMERICAN 143 mL/min (>90)
[2019-12-01] MEDS: metFORMIN HCL 500 MG TABLET PO SCH ×2 (08:50→18:00)
[2019-12-01 08:51] VITALS: BP_SYST 145
[2019-12-01] MEDS: LOSARTAN POTASSIUM 50 MG TABLET (COZAAR) PO SCH (09:26)
[2019-12-01] MEDS: PREDNISONE 20 MG TABLET PO SCH (09:27)
[2019-12-01] MEDS: NITROGLYCERIN 1 INCH (GM) OINT. TP SCH (09:27)
[2019-12-01] MEDS: amLODIPine BESYLATE 5 MG TABLET PO SCH (09:27)
[2019-12-01] MEDS: ENOXAPARIN SODIUM 40 MG/0.4 ML SYRINGE SUBCUT SCH (09:42)
[2019-12-01] MEDS: FUROSEMIDE 20 MG/2 ML VIAL IVP SCH (09:44)
[2019-12-01 10:09] LABS: ERYTHROCYTE SEDIMENTATION RATE 12 MM/HR (0-15)
[2019-12-01] MEDS: cefTRIAXone 1 GM in D5W 50 ML IV SCH (15:02)
[2019-12-01 16:15] VITALS: BP_SYST 131
[2019-12-01 17:23] VITALS: BP_SYST 127
[2019-12-02] MEDS ORDERED: PREDNISONE 20 MG TABLET PO SCH (08:00)
== END 2019-12-01 18:58 | disposition home health service (06) | DRG 193 ==
LOC: SED 21:19 → STU 11-21 02:13 → SIC 11-21 19:20 → STU 11-27 17:16
PROVIDERS: ADMIT Preventive Medicine Preventive Medicine/Occupational Environmental Medicine; ATTEND Preventive Medicine Preventive Medicine/Occupational Environmental Medicine
PROC: 5A09357 Assistance with Respiratory Ventilation, Less than 24 Consecutive Hours, Continuous Positive Airway Pressure (ICD-10-PCS; principal; 2019-11-21)
PROC: 5A09357 Assistance with Respiratory Ventilation, Less than 24 Consecutive Hours, Continuous Positive Airway Pressure (ICD-10-PCS; 2019-11-23)
PROC: 5A09357 Assistance with Respiratory Ventilation, Less than 24 Consecutive Hours, Continuous Positive Airway Pressure (ICD-10-PCS; 2019-11-24)
DX: J18.9 Pneumonia, unspecified organism (principal); J96.01 Acute respiratory failure with hypoxia; A41.9 Sepsis, unspecified organism; E87.1 Hypo-osmolality and hyponatremia; R17 Unspecified jaundice; Z68.42 Body mass index [BMI] 45.0-49.9, adult; I50.9 Heart failure, unspecified; I11.0 Hypertensive heart disease with heart failure; G47.33 Obstructive sleep apnea (adult) (pediatric); E78.5 Hyperlipidemia, unspecified; G93.3 Postviral and related fatigue syndromes; D47.3 Essential (hemorrhagic) thrombocythemia; E83.41 Hypermagnesemia; E66.01 Morbid (severe) obesity due to excess calories; E87.6 Hypokalemia; E83.51 Hypocalcemia; F17.210 Nicotine dependence, cigarettes, uncomplicated; R74.0 Nonspecific elevation of levels of transaminase and lactic acid dehydrogenase [LDH]; T38.0X5A Adverse effect of glucocorticoids and synthetic analogues, initial encounter; E11.65 Type 2 diabetes mellitus with hyperglycemia; Z82.49 Family history of ischemic heart disease and other diseases of the circulatory system; Z83.3 Family history of diabetes mellitus; Z79.899 Other long term (current) drug therapy; Y92.89 Other specified places as the place of occurrence of the external cause
CPT/HCPCS: 36415; 36600; 71045; 71250-TC; 80048; 80053; 80061; 80202-TC; 81000-TC; 82803-TC; 82962; 83605; 83735-TC; 83880; 84484; 85025; 85610-TC; 85651-TC; 85730-TC; 86140; 86710; 86713; 86738; 87040-TC; 87070-TC; 87081; 87205-TC; 87449; 93005; 93306; 94640; 94660; 94760; 96360; 97163; 99285; G0378; G9035; J0456; J0696; J1030; J1650; J1815; J1940; J3370; J7030; J7040; J7050; J7060; J7512; J7612; J7613